=== PATIENT | female | born 1970 | race African-American/Black ===

== ENCOUNTER 2024-08-14 17:03 | Emergency (ER) | payer MEDICAID ==
[~2024-08-14] VITALS: Ht 154.9 cm; Wt 79.0 kg
[2024-08-14 17:07] VITALS: O2SAT 100
[2024-08-14] MEDS: ACETAMINOPHEN 325MG TABLET PO ONE (20:16)
[2024-08-14] MEDS: IBUPROFEN 400MG TABLET PO ONE (20:17)
[2024-08-14] MEDS: LIDOCAINE 5% PATCH TOP SCH (20:17)
[2024-08-14 21:46] VITALS: BP 134/87; PULSE 87; RESP 16; TEMP 36.94740; O2SAT 100
== END 2024-08-14 21:49 | disposition home or self-care (01) ==
LOC: ER 17:03
DX: M54.2 Cervicalgia (principal); I10 Essential (primary) hypertension; Z88.0 Allergy status to penicillin; Z90.5 Acquired absence of kidney; V43.52XA Car driver injured in collision with other type car in traffic accident, initial encounter; Y93.89 Activity, other specified; Y92.410 Unspecified street and highway as the place of occurrence of the external cause; Y99.8 Other external cause status
CPT/HCPCS: 99284